=== PATIENT | male | born 1985 | race Two or more races ===

== ENCOUNTER 2021-08-07 02:28 | Emergency (ER) | payer BC, OTHER ==
[~2021-08-07] VITALS: Ht 180.3 cm; Wt 83.9 kg
--- NOTE | 2021-08-07 02:35 | NUR ---
TO ER BED 11. [id number] FOR ETOH. PT ADMITTED ON DRINKING 6-8 SHOTS. AAOX4 ON TRIAGE. NO MEDICAL COMPLAINTS. CONNECTED TO MONITOR. AWAITING MD LOMAX
[2021-08-07] MEDS ORDERED: diphenhydrAMINE HCL 50 MG/ML VIAL ONE (03:14)
[2021-08-07] MEDS ORDERED: HALOPERIDOL LACTATE INJ 5 MG/ML VIAL ONE (03:14)
[2021-08-07] MEDS ORDERED: LORAZEPAM INJ 2 MG/ML VIAL ONE (03:15)
[2021-08-07] MEDS ORDERED: LORAZEPAM INJ 2 MG/ML VIAL IM ONE (03:30)
[2021-08-07] MEDS ORDERED: diphenhydrAMINE HCL 50 MG/ML VIAL IM ONE (03:30)
[2021-08-07] MEDS ORDERED: HALOPERIDOL LACTATE INJ 5 MG/ML VIAL IM ONE (03:30)
--- NOTE | 2021-08-07 04:49 | NUR ---
PT SLEEPING. ALL NEEDS MET AT THIS TIME. VSS. AROUSABLE TO PAIN. SAFETY MEASURES IN PLACE.
--- NOTE | 2021-08-07 07:35 | NUR ---
PT SLEEPING IN BED. AROUSABLE TO STIMULI. SAFETY MEASURES IN PLACE. VS STABLE. WILL CONTINUE TO MONITOR
--- NOTE | 2021-08-07 08:06 | NUR ---
Patient discharged to home in stable condition. Written and verbal after care instructions given. Patient verbalizes understanding of instruction.
[2021-08-07 08:07] VITALS: BP 157/86
== END 2021-08-07 08:07 | disposition home or self-care (01) ==
LOC: ER 02:31
DX: F10.129 Alcohol abuse with intoxication, unspecified (principal); Y90.9 Presence of alcohol in blood, level not specified
CPT/HCPCS: J1200; J1630; J2060